=== PATIENT | female | born 1990 | race Caucasian/White ===

== ENCOUNTER 2025-05-06 20:35 | Emergency (ER) | payer BC ==
[~2025-05-06] VITALS: Ht 162.6 cm; Wt 60.3 kg
[2025-05-06 20:48] VITALS: PULSE 73; RESP 19; TEMP 98.4; O2SAT 99
[2025-05-06] MEDS: TETANUS/DIPHTHERIA TOX ADULT 0.5 ML SYR IM ONE (21:30)
[2025-05-06 21:37] VITALS: BP 118/59; PULSE 73; RESP 19; TEMP 98.4
== END 2025-05-06 21:39 | disposition home or self-care (01) ==
LOC: FSED 20:53
DX: S61.210A Laceration without foreign body of right index finger without damage to nail, initial encounter (principal); W26.0XXA Contact with knife, initial encounter; Y93.G1 Activity, food preparation and clean up; Y92.89 Other specified places as the place of occurrence of the external cause; E03.9 Hypothyroidism, unspecified
CPT/HCPCS: 90714; 99284